=== PATIENT | male | born 2000 | race Asian ===

== ENCOUNTER 2024-02-18 11:44 | Outpatient (CLI) | payer BC ==
[2024-02-18 12:12] LABS: Hematocrit 48.8 % (38.8-50.0); Hemoglobin 15.8 g/dL (13.5-17.5); Mean Corpuscular HGB CONC 32.4 g/dL (32.0-36.0); Mean Corpuscular Volume 92.8 fL (81.2-95.1); Mean Platelet Volume 8.9 fL (7.4-10.4); Platelet Count 309 10x3/uL (150-450); RBC Distribution Width 11.5 % (11.5-14.5); Red Blood Cell (RBC) Count 5.26 10x6/uL (4.32-5.72); White Blood Cell (WBC) Count 6.9 10x3/uL (3.5-10.5)
== END 2024-02-18 11:45 | disposition home or self-care (01) ==
LOC: CSHLAB 11:44
PROVIDERS: ATTEND Surgery
DX: Z01.812 Encounter for preprocedural laboratory examination (principal); K40.90 Unilateral inguinal hernia, without obstruction or gangrene, not specified as recurrent
CPT/HCPCS: 85027

== ENCOUNTER 2024-02-21 05:54 | Day surgery (SDC) | payer BC ==
[2024-02-21] MEDS ORDERED: Bupivacaine/Epinephrine 0.25% 30 ML VIAL ONE (06:58)
[2024-02-21] MEDS ORDERED: Rocuronium Bromide 10 MG/ML (10ML VIAL) ONE ×2 (07:08→08:19)
[2024-02-21] MEDS ORDERED: Lidocaine 1% PF 5 ML VIAL ONE (07:08)
[2024-02-21] MEDS ORDERED: fentaNYL 50 mcg/mL 1 mL Vial ONE ×4 (07:08→10:07)
[2024-02-21] MEDS ORDERED: PROPOFOL 20 ML ONE (07:08)
[2024-02-21] MEDS ORDERED: Midazolam HCl 2 mg/2 ml Vial ONE (07:19)
[2024-02-21] MEDS ORDERED: CEFAZOLIN 2 GM VIAL ONE (07:23)
[2024-02-21] MEDS ORDERED: Dexmedetomidine 200 MCG/2 ML VIAL ONE (07:48)
[2024-02-21] MEDS ORDERED: Dexamethasone 20 MG/5 ML VIAL ONE (07:52)
[2024-02-21] MEDS ORDERED: Ondansetron PF 4 MG/2 ML Vial ONE (07:52)
[2024-02-21] MEDS ORDERED: SUGAMMADEX SODIUM 200 MG/2 ML VIAL ONE ×2 (08:18→08:20)
[2024-02-21] MEDS ORDERED: HYDROcodone/Acetaminophen 5/325 mg Tablet ONE (10:42)
[2024-02-21] MEDS ORDERED: Ondansetron ODT 4 MG TAB ONE (11:42)
== END 2024-02-21 12:10 | disposition home or self-care (01) ==
LOC: CSHSDC 05:54
PROVIDERS: ATTEND Surgery
PROC: 0YU54JZ Supplement Right Inguinal Region with Synthetic Substitute, Percutaneous Endoscopic Approach (ICD-10-PCS; principal; 2024-02-21)
DX: K40.90 Unilateral inguinal hernia, without obstruction or gangrene, not specified as recurrent (principal)
CPT/HCPCS: C1781; J1100; J2250; J2405; J2704; J3010; Q0162; S2900